=== PATIENT | female | born 1960 | race Caucasian/White ===

== ENCOUNTER 2021-12-13 12:55 | Outpatient (CLI) | payer BC, SELFPAY ==
--- OUTSIDE RECORDS SUMMARY | 2021-11-10 08:53 | XMS_ITS | Continuity of Care Document ---
:1960 Author Allergies, Adverse Reactions, Alerts Allergen Type Severity Reaction Last Verified Status Updated Hydrochlorothiazide Adverse Moderate headache June No Active Reaction 2021 Cefuroxime Allergy Moderate hives June No Active 2021 Lisinopril Adverse Unknown Hair Loss June Yes Active Reaction 2021 Social History Smoking Status Status Start Date End Date Date of Observat ion Never smoked tobacco June 9:16pm (finding) Additional Data Assigned Sex Female Problems Active Problems Medical Problem Onset Date Status Hypothyroidism July 27, 2008 Active arthralgias July 27, 2008 Active Anxiety March 01, 2009 Active Osteopenia March 01, 2009 Active Melanoma March 01, 2009 Resolved Tubal Ligation March 01, 2009 Resolved Vaginal cyst removal March 01, 2009 Resolved osteopenia needs bone densimeter April 19, 2011 Active 11 2012 Hypertension Active Fibromyalgia Active Edema Active Annual physical exam Active Medications Medication Status Dose Units Route Directions Qty Days Start End Ins tructions Date Date Amlodipine Active 5 MG PO Daily 90 Februar Besylate y 2021 1:17pm Calcium Active Unknow PO Daily 100 Carbonate n Dose Hydrochlorot Active 12.5 MG PO Daily 90 Februar hiazide y 2021 1:17pm Levothyroxin Active 137 MCG PO Daily 90 Februar e Sodium y 2021 1:21pm Multivitamin Active 1 TAB PO Daily 100 s (Multivitami n/Minerals) TAB Albuterol Disconti 2 PUFF INH Q4-6H Prn 8.5 November Sulfate nued er 5th, (Proair Hfa) 2011 90 Mcg/Puff 2010 8:55am INH 5:01pm Amlodipine Disconti 5 MG PO Daily 18 June Februa Besylate nued 2021, 1:56pm 2021 1:17pm Amlodipine Disconti 5 MG PO Daily 30 Februa Besylate nued r 2020, 2:25pm 2021 12:55p m Amlodipine Disconti 5 MG PO Daily December Besylate nued , er 2020 6th, 11:41am 2020 2:25pm Amlodipine Disconti 5 MG PO Daily August Besylate nued , 2020 11:22am 11:41a m Amlodipine Disconti 5 MG PO Daily February Besylate nued 2019 7:32pm 11:22a m Amlodipine Disconti 5 MG PO Daily Octobe Besylate nued er r 2019 9:50am 7:37pm Amlodipine Disconti 10 MG PO Daily November Besylate nued , 2019, 9:13am 2019 9:50am Amlodipine Disconti 5 MG PO Daily October Besylate nued 2019 2:19pm 12:02p m Amlodipine Disconti 5 MG PO Daily July Besylate nued , 2019 4:03pm 2:19pm Amlodipine Disconti 5 MG PO Daily July Besylate nued r , 2018 4:15pm 4:03pm Amlodipine Disconti 5 MG PO Daily 30 Besylate nued r 3rd, er 2018 5th, 4:22pm 2018 4:15pm Amlodipine Disconti 5 MG PO Daily July Besylate nued 7th, er 2018 3rd, 10:48am 2018 4:22pm Amlodipine Disconti 5 MG PO Daily Besylate nued r 2nd, er 2017 3rd, 3:08pm 2018 4:12pm Amlodipine Disconti 5 MG PO Daily December Besylate nued 2nd, er 2017 2nd, 11:23am 2017 3:08pm Amlodipine Disconti 5 MG PO Daily February Besylate nued , 2014 1:29pm 11:07a m Amlodipine Disconti 5 MG PO Daily October Besylate nued 2015 9:19am 11:07a m Amlodipine Disconti 5 MG PO Daily 30 Septemb Octobe Besylate nued er , r 2014 11:39am 1:29pm Amoxicillin Disconti 500 MG PO Tid X 10 nued Days r 2015, 11:20am 2016 1:44pm Amoxicillin Disconti 875 MG PO Twice A Day September nued , 2008 3:51pm 2:49pm Amoxicillin/ Disconti 1 TAB PO Twice Daily February brua Clavulanate nued For 10 Days 2020, (Amoxicillin 12:01pm 2021 & Pot 12:55p Clavulanate) m 875 Mg/125 Mg TAB Aspirin Disconti 1 TABLET PO Daily Novembered 2011 8:55am Azithromycin Disconti 250-50 MG PO As Directed July 500 MG ON DAY (Zithromax nued 0 , , 1 THEN 25 0 MG Z-Dieudonne) 250 2019 2019 DAILY X 4 Mg TAB 2:55pm 8:31am MORE DAYS Azithromycin Disconti 1 TAB PO As Directed No vemb 500 MG ON DAY (Zithromax) nued er er 1 THEN 2 50 MG 250 Mg TAB , DAILY DAY S 2010 2010 2-5 4:42pm 2:51pm Biotin W/ Disconti 1 CHW PO Daily July Vitamins C & nued , E (Hair Skin 2018 & Nails ... 8:45am 1250-7.5-7.5 Mcg-Mg-Unt) 1 Chw CHW Calcium/Kristi Disconti 1 EA PO Daily July min D nued 2014 1:52pm Cefuroxime Disconti 1 TABLET PO Twice A Day Jul ch Axetil nued y , (Ceftin) 500 2014 2014 Mg TAB 4:36pm 4:00pm Clonazepam Disconti 1 MG PO Bedtime November nued 2010, 10:46am 2010 4:21pm Conjugated Disconti 1 TAB PO Daily Novemnovember Estrogens-Me nued r , droxypr 2009 2011 (Prempro) 9:51am 8:55am 0.3 Mg/1.5 Mg TAB Conjugated Disconti 1 TAB PO Daily 30 Novem Novemb Estrogens-Me nued r 12th, er droxypr 2010 04, (Prempro) 9:50am 2009 0.3 Mg/1.5 9:51am Mg TAB Conjugated Disconti 1 TAB PO Daily ua Novemb Estrogens-Me nued y 2nd, er droxypr 2010 04, (Prempro) 1:25pm 2009 0.3 Mg/1.5 9:50am Mg TAB Conjugated Disconti 1 TAB PO Daily Februaryua Estrogens-Me nued 2nd, ry droxypr 2008 06, (Prempro) 11:27am 2009 0.3 Mg/1.5 1:25pm Mg TAB Conjugated Disconti 1 TAB PO Daily 16 October Octobe Estrogens-Me nued , r 2nd, droxypr 2008 2008 (Prempro) 12:05pm 11:27a 0.3 Mg/1.5 m Mg TAB Conjugated Disconti 1 TAB PO Daily July Estrogens-Me nued , , droxypr 2008 2008 (Prempro) 10:37am 12:05p 0.45 Mg/1.5 m Mg TAB Cyclobenzapr Disconti 1 TABLET PO Tid Prn July ine Hcl nued 14, , (Flexeril) 2010 Mg TAB 3:53pm 10:25a m Diphenhydram Disconti 25 MG PO Once July ine Hcl nued 9, 9, (Sleep) 2014 2014 (Benadryl) 4:07pm 4:21pm 25 Mg TAB Escitalopram Disconti 5 MG PO Daily October Oxalate nued , , (Lexapro) 5 2016 2017 Mg TAB 9:31am 8:45am Escitalopram Disconti 10 MG PO Daily September ta ke 1/2 tab po each day for seven days. then september increase Oxalate nued r , , to one tab po each day. (Lexapro) 10 2011 2013 Mg TAB 1:51pm 10:59a m Estroven Disconti Daily July nued 2009 2:50pm Fluticasone Disconti 1 SPRAY EACH Twice A Day October Propionate nued NOSTR , , (Fluticasone 2014 2014 Propionate 1:58pm 8:27am (Nasal)) 50 Mcg/1 Fulda INH Hepatitis B Disconti 1 ML IM Once July Vaccine nued , , (Engerix-B 2008 2008 Sdv) 20 9:51am 11:01a Mcg/Ml INJ m Hepatitis B Disconti 1 ML IM Once Vaccine nued er lizzie (Engerix-B , , Sdv) 20 2007 2007 Mcg/Ml INJ 11:40am 11:08a m Hepatitis B Disconti 1 ML IM Once December Vaccine nued , , (Engerix-B 2007 2007 Sdv) 20 9:06am 11:45a Mcg/Ml INJ m Hydrochlorot Disconti 12.5 MG PO Daily hiazide nued r 2020, 2:29pm 2021 1:17pm Hydrochlorot Disconti 12.5 MG PO Daily December hiazide nued 2020, 12:07pm 2021 12:55p m Hydrochlorot Disconti 12.5 MG PO Daily September hiazide nued , 2020 11:07am 12:07p m Hydrochlorot Disconti 12.5 MG PO Daily February hiazide nued , 2019 7:36pm 11:07a m Hydrochlorot Disconti 12.5 MG PO Daily October hiazide nued , 2014 2:02pm 3:06pm Ibuprofen Disconti 600 MG PO Every 6 July nued Hours as 13th, 26, 2014 7:01pm 1:52pm Influenza Disconti 0.5 ML IM Once 1 Decembe Decemb Virus Vac nued r 5th, er Recomb Hem 2018 09, (Flublok 3:41pm 2018 Quadrivalent 4:07pm 2018 0.5 Ml) 1 Inj INJ Influenza Disconti 0.5 ML IM Once 1 Novembe Novemb Virus Vacc nued r 12th, er Triv Types 2010 04, A&B (Fluarix 8:40am 2009) 0.5 8:48am Ml INJ Influenza Disconti 0.5 ML IM Once 1 Novembe Novemb Virus nued r 2nd, er Vaccine 2017 06, (Fluzone 3:12pm 2018 Quadrivalent 3:25pm (3 Yrs And Older)2018-1 9) 1 Inj INJ Levothyroxin Disconti 137 MCG PO Daily May e Sodium nued 2021, 11:21am 2021 1:21pm Levothyroxin Disconti 137 MCG PO Daily Novemberr e Sodium nued 2020, 5:18pm 2021 11:21a m Levothyroxin Disconti 137 MCG PO Daily May e Sodium nued 2020 8:42am 5:18pm Levothyroxin Disconti 137 MCG PO Daily February e Sodium nued , 2019, 9:18am 2020 8:42am Levothyroxin Disconti 125 MCG PO Daily December e Sodium nued 2019, 5:36pm 2020 8:23am Levothyroxin Disconti 112 MCG PO Daily October e Sodium nued , 2019, 2:19pm 2019 7:09pm Levothyroxin Disconti 112 MCG PO Daily October e Sodium nued r 2018 4:15pm 2:19pm Levothyroxin Disconti 112 MCG PO Daily e Sodium nued er er 2018 11:08am 4:15pm Levothyroxin Disconti 112 MCG PO Daily 90 e Sodium nued r , lizzie 2017, 3:08pm 2018 11:08a m Levothyroxin Disconti 112 MCG PO Daily December e Sodium nued , er 2017 2nd, 12:47pm 2017 3:08pm Levothyroxin Disconti 112 MCG PO Daily October e Sodium nued 2017 1:26pm 12:47p m Levothyroxin Disconti 112 MCG PO Daily July e Sodium nued 2017 12:27pm 1:26pm Levothyroxin Disconti 112 MCG PO Daily July e Sodium nued 2017 2:14pm 12:27p m Levothyroxin Disconti 100 MCG PO Daily May e Sodium nued , (Synthroid) 2017 2017 100 Mcg TAB 8:43am 2:15pm Levothyroxin Disconti 100 MCG PO Daily July e Sodium nued 2017 9:15am 2:15pm Levothyroxin Disconti 100 MCG PO Daily Octoberr e Sodium nued , y (Synthroid) 2016, 100 Mcg TAB 9:13am 2017 8:43am Levothyroxin Disconti 112 MCG PO Daily October e Sodium nued , , (Synthroid) 2016 2016 112 Mcg TAB 4:48pm 9:13am Levothyroxin Disconti 100 MCG PO Daily October e Sodium nued , (Synthroid) 2015 2016 100 Mcg TAB 9:19am 4:53pm Levothyroxin Disconti 100 MCG PO Daily September Pt w ill be e Sodium nued , , due for (Synthroid) 2015 2015 medicati on 100 Mcg TAB 8:58am 11:07a follow up in november Levothyroxin Disconti 100 MCG PO Daily November e Sodium nued , (Synthroid) 2014 2015 100 Mcg TAB 8:49am 8:58am Levothyroxin Disconti 1 TAB PO Daily November e Sodium nued , (Synthroid) 2014 8th, 100 Mcg TAB 8:50am 2014 9:09am Levothyroxin Disconti 1 TAB PO Daily September e Sodium nued , , (Synthroid) 2013 2014 100 Mcg TAB 4:20pm 8:50am Levothyroxin Disconti 1 TAB PO Daily September e Sodium nued , , (Synthroid) 2012 2013 100 Mcg TAB 10:13am 4:20pm Levothyroxin Disconti 1 TAB PO Daily September e Sodium nued y , , (Synthroid) 2011 2012 100 Mcg TAB 1:51pm 10:13a m Levothyroxin Disconti 1 TAB PO Daily December e Sodium nued , (Synthroid) 2010 3rd, 100 Mcg TAB 5:10pm 2011 1:51pm Levothyroxin Disconti 1 TAB PO Daily December e Sodium nued r 16, , (Synthroid) 2009 2010 100 Mcg TAB 9:14am 5:10pm Levothyroxin Disconti 1 TAB PO Daily 90 Novembe Novemb e Sodium nued r 12th, er (Synthroid) 2009 16, 75 Mcg TAB 9:50am 2009 9:14am Levothyroxin Disconti 0.5 TAB PO Daily 90 Februar Novemb e Sodium nued y 9th, er 2010 04, 1:52pm 2009 9:50am Levothyroxin Disconti 1 TAB PO Daily Decembe Februa e Sodium nued r , ry (Synthroid) 2008 9th, 75 Mcg TAB 11:53am 2009 1:52pm Levothyroxin Disconti 1 TAB PO Daily Februarymb e Sodium nued 8th, er (Synthroid) 2008 11, 75 Mcg TAB 1:13pm 2008 11:53a m Levothyroxin Disconti 1 TAB PO Daily Februaryobe e Sodium nued 2nd, r (Synthroid) 2008 13, 75 Mcg TAB 11:27am 2008 8:37am Levothyroxin Disconti 1 TAB PO Daily Julyobe e Sodium nued 13th, r 2nd, (Synthroid) 2008 2008 75 Mcg TAB 2:30pm 11:27a m Levothyroxin Disconti 1 TAB PO Daily May e Sodium nued 27, 13th, (Synthroid) 2008 2008 50 Mcg TAB 3:58pm 2:30pm Levothyroxin Disconti 1 TAB PO Daily r e Sodium nued er y (Synthroid) , , 50 Mcg TAB 2007 2008 4:56pm 3:58pm Levothyroxin Disconti 1 TAB PO Daily Janem e Sodium nued er lizzie (Synthroid) , 26, 75 Mcg TAB 2007 2007 4:17pm 4:56pm Levothyroxin Disconti 1 TAB PO Daily Decemberem e Sodium nued , lizzie (Synthroid) 2007 16, 25 Mcg TAB 9:20am 2007 4:17pm Lisinopril Disconti 2.5 MG PO Daily November Februa nued , ry 2015 4th, 8:49am 2015 2:58pm Lisinopril Disconti 2.5 MG PO Daily November nued , lizzie 2014 8th, 2:39pm 2014 9:09am Lisinopril Disconti 2.5 MG PO Daily October nued , , 2014 2014 8:57am 2:39pm Methylpredni Disconti 1 PACK PO Once July TAKE solone nued 14, 9, DIRECTED ON (Medrol 2010 2010 PACKAGE Dose-Dieudonne) 4 3:53pm 10:25a Mg TAB m Multiple Disconti 1 EA PO July Vitamin nued , (Multi-Vitam 2014 in) TAB 1:52pm Multiple Disconti 1 TAB PO Octobe Vitamins W/ nued r Minerals , (Hair Skin 2020 And Nails 11:43a Formu) 1 Tab m TAB Multivitamin Disconti 1 TAB PO Daily 100 Octobe s nued r (Multivitami , n/Minerals) 2020 TAB 11:43a m Oxycodone/Ac Disconti 1-2 TAB PO Every 4 July etaminophen nued Hours as , , (Percocet) 5 needed 2014 2014 Mg/325 Mg 7:01pm 1:52pm TAB Prednisone Disconti 40 MG PO Daily 10 August nued , , 2019 2019 12:48pm 8:31am Tetanus-Diph Disconti 0.5 ML IM Once July theria nued , , Toxoids (Td 2018 2018 (Tenivac) 1 10:30am 10:50a Ml INJ m Tobramycin/D Disconti 1 DROP RIGHT Four Times m examethasone nued EYE Daily lizzie (Tobradex , Oph2010 Suspension) 4:21pm 1 Drop DROP Triamcinolon Disconti 1 BRANDO TOP Twice A Day December emb e Acetonide nued , er (Triamcinolo 2017 09, ne Acetonide 11:23am 2018 (Cream)) 0.1 3:41pm % CRE Triamcinolon Disconti 60 MG IM Once July e Acetonide nued , , (Kenalog) 40 2014 2014 Mg/1 Ml INJ 4:11pm 4:21pm Zoster Disconti 50 MCG IM Once 1 Februar Februa Vaccine nued y 5th, ry Recombinant 2020 5th, Adj 12:47pm 2019 (Shingrix) 1:03pm 50 Mcg/0.5 Ml INJ Zoster Disconti 50 MCG IM Once 1 Decembe Decemb Vaccine nued r , er Recombinant 2018 09, Adj 3:41pm 2018 (Shingrix) 4:07pm 50 Mcg/0.5 Ml INJ Immunizations Immunization Event Date Not Given Dose Bottle Selector Lot Vac cine Reason Number Number Informatio n Statement (VIS) Deta il COVID-19 Pfizer August 13 PFIZER-BIONTECH [id number] 2020 COVID-19 Pfizer September 03, PFIZER-BIONTECH [id number] 2020 Influenza March 20 Glaxosmithkline [id number] 2009 A Influenza March 21 SANOFI [id number] 2017 A Influenza April 21 PROTEIN SC [id number] 2018 A Shingrix April 19 GSK CONSUM [id number] 2018 Shingrix June 21 GLAXOSMITH [id number] 2019 Tetanus/Dipther July 24 SANOFI [id number] 2018 Tdap August 20 (adolescent/pat 2007 lt) Advance Directives Advance Directive Response Recorded Date/Time Does Pt have Health Care No June 29, 2015 2:59pm Directive? Has patient completed a N - Given today June 27 9:16pm Health Care Directive? Insurance Providers Guarantor Deysi Haro Address [address] [address] Contact Info. Home Phone: Payer Policy Id Coverage Id Subscriber's Subscriber Id Effective E xpiration Name Date Date [place] [id number] Raghav Haro [id number] Plan of Treatment Future Tests Future scheduled test information is unavailable Pending Tests Pending diagnostic test information is unavailable Future Visits Future appointment information is unavailable Referrals to Other Providers Reason for Referral Referral Start Provider Provider Contact Pr ovider Address Date Information Entered by Kraina Mtz, 12/30/07. Dread Marrero Work Phone: [facility] Patient scheduled to see Dread Marrero on 01/05/08 at 10:00. RPT ATC [id number] [facility] 05 [phone] Appointment scheduled at [facility] in [place] with Huber Thomason on 09/02/14 at 3:00 pm. Records will be faxed to [phone]. Entered by Karina Mtz, 12/30/07. Dread Marrero Work Phone: [facility] Patient scheduled to see Dread Marrero on 01/05/08 at 10:00. RPT ATC [id number] [id number] Appointment scheduled at [facility] with Huber Thomason on 09/02/14 at 3:00 pm. Records will be faxed to [phone]. Future Procedures Procedure Name Scheduled Date Colonoscopy Screening RAD DEXA - Bone Density RAD DEXA - Bone Density Future Medications Future medication information is unavailable Patient Instructions Patient instructions are unavailable
--- NOTE | 2021-12-13 13:00 | CRLHL7_ITS ---
For Patients: As a result of the Century Cures Act, medical imaging exams and procedure reports are released immediately into your electronic medical record. You may view this report before your referring provider. If you have questions, please contact your health care provider. DXA BONE MINERAL DENSITY STUDY Current height (in): 64. Weight (lb): 140. Menopause age: 41. Ethnicity: White. 1. Have you had a previous hip or vertebral fracture? No. 2. Have you had any fractures during your adult life which did not result from significant trauma (e.g., auto accident)? No. 3. Did either of your parents have a hip fracture? No. 4. Do you smoke? No. 5. Have you ever taken Glucocorticoids? No. 6. Do you have rheumatoid arthritis? No. 7. Do you have secondary osteoporosis? No. 8. Do you drink 3 or more alcoholic drinks per day? No. 9. Are you being treated for osteoporosis? No. 10. Have you ever taken any of the following medications: Actonel, Evista, Fosamax, Miacalcin, Reclast, Boniva, Forteo, HRT (i.e. estrogen/hormone therapy), Protelos, Prolia, Vitamin D, Calcium, other ??? please specify. ANSWER: Yes, vitamin D, calcium. 11. Do you have any of the following medical conditions: Anorexia or bulimia, asthma or emphysema, end stage renal disease, hyperparathyroidism, any seizure disorders, cancer, inflammatory bowel diseases, hysterectomy, other ??? please specify. ANSWER: No. 12. What was your maximum height (inches)? 64. 13. Do you perform weight bearing exercise regularly? Yes. 14. Do you regularly consume dairy products? Yes. 15. Do you drink caffeinated beverages? No. 16. At what age did your period start? 15.5. 17. Are you premenopausal? No. 18. How many full term pregnancies have you had? 4. 19. Have you ever missed your period for more than 6 months in a row (not including or menopause)? No. TECHNIQUE: Bone mineral density study was performed using the [facility]. FINDINGS: The results of the study expressed as bone mineral density (BMD) are as follows: Lumbar spine L1 to L4: BMD: 0.804 g/cm2. T-score: -2.2. Z-score: -0.5. Neck Left: BMD: 0.761 g/cm2. T-score: -0.8. Z-score: 0.7. Right: BMD: 0.663 g/cm2. T-score: -1.7. Z-score: -0.2. Total Left: BMD: 0.822 g/cm2. T-score: -1.0. Z-score: 0.2. Right: BMD: 0.815 g/cm2. T-score: -1.0. Z-score: 0.1. IMPRESSION: Osteopenia. *Comparison exams done prior to 10/2019 were performed on different unit, [facility]. COMPARISON: Compared with scan of 2019, the bone mineral density has increased by 2.9 percent at the spine and decreased by 2.3 percent at the hip. Compared with scan of 2015, the bone mineral density has decreased by 8.4 percent at the spine and decreased by 7.1 percent at the hip. FRAX 10-year Fracture Risk Major Osteoporotic Fracture: 8.9 percent Hip Fracture: 1.0 percent Reported Risk Factors: [place] () Neck BMD = 0.663, BMI = 24.0 Haroon Mas M.D. Diagnostic/Nuclear Medicine Radiologist [email or web address] MARY CARMEN/Dictated by: Haroon Mas MD @ 12/14/2021 11:12:00 AM (Electronically Signed)
== END 2021-12-13 12:56 | disposition home or self-care (01) ==
LOC: RAD 12:59
PROVIDERS: Visit Provider Emergency Medicine
DX: M85.9 Disorder of bone density and structure, unspecified (principal); M85.89 Other specified disorders of bone density and structure, multiple sites
CPT/HCPCS: 77080

== ENCOUNTER 2022-07-18 08:45 | Outpatient (CLI) | payer BC, SELFPAY ==
[2022-07-18 15:04] LABS: Chloride* 105 mmol/L (96-114); Potassium* 4.5 mmol/L (3.6-5.1); Sodium* 141 mmol/L (135-149)
[2022-07-18 15:07] LABS: Carbon Dioxide* 27 mmol/L (20-32); Cholesterol* 226 mg/dL (90-199); Creatinine* 0.8 mg/dL (0.5-1.5); Estimated Glomerular Filt Rate 82 ml/min
[2022-07-18 15:08] LABS: Blood Urea Nitrogen* 17 mg/dL (7-30); Calcium* 10.1 mg/dL (8.4-10.6); Glucose* 110 mg/dL (60-115); HDL Cholesterol* 58 mg/dL (>=50); LDL Cholesterol Calculated 136 mg/dL (<100); Triglycerides* 162 mg/dL (40-149)
[2022-07-18 15:39] LABS: TSH With Reflex to FT4* 0.166 uIU/mL (0.270-4.200)
[2022-07-18 16:54] LABS: Free T4 Free Thyroxine* 1.38 ng/dL (0.70-1.85)
== END 2022-07-18 08:46 | disposition home or self-care (01) ==
PROVIDERS: PCP Emergency Medicine; Visit Provider Emergency Medicine
DX: Z00.00 Encounter for general adult medical examination without abnormal findings (principal); E03.9 Hypothyroidism, unspecified; I10 Essential (primary) hypertension; Z13.6 Encounter for screening for cardiovascular disorders
CPT/HCPCS: 80048; 80061; 84439; 84443

== ENCOUNTER 2022-12-05 09:11 | Outpatient (CLI) | payer BC, SELFPAY | END 2022-12-05 09:12 | disposition home or self-care (01) | LOC: NFLDREF 12-06 07:33 | PROVIDERS: PCP Emergency Medicine; Referring Provider Emergency Medicine; Visit Provider Emergency Medicine | DX: E03.9 Hypothyroidism, unspecified (principal) | CPT/HCPCS: 84439; 84443 ==

== ENCOUNTER 2023-10-02 08:36 | Outpatient (CLI) | payer BC, SELFPAY | END 2023-10-02 08:37 | disposition home or self-care (01) | LOC: NFLDREF 10-03 05:23 | PROVIDERS: PCP Emergency Medicine; Referring Provider Emergency Medicine; Visit Provider Emergency Medicine | DX: E03.9 Hypothyroidism, unspecified (principal); E78.5 Hyperlipidemia, unspecified; I10 Essential (primary) hypertension | CPT/HCPCS: 80053; 80061; 84443 ==

== ENCOUNTER 2024-01-30 08:43 | Outpatient (CLI) | payer BC, SELFPAY | END 2024-01-30 08:44 | disposition home or self-care (01) | LOC: NFLDREF 02-03 08:24 | PROVIDERS: PCP Emergency Medicine; Referring Provider Emergency Medicine; Visit Provider Emergency Medicine | DX: E78.5 Hyperlipidemia, unspecified (principal); I10 Essential (primary) hypertension | CPT/HCPCS: 80048; 80061 ==

== ENCOUNTER 2024-02-05 10:15 | Outpatient (CLI) | payer BC, SELFPAY | END 2024-02-05 10:16 | disposition home or self-care (01) | LOC: LKVREF 10:16 | PROVIDERS: PCP Emergency Medicine; Visit Provider Emergency Medicine | DX: E03.9 Hypothyroidism, unspecified (principal) | CPT/HCPCS: 84439; 84443 ==

== ENCOUNTER 2024-04-09 13:03 | Outpatient (CLI) | payer BC, SELFPAY ==
--- NOTE | 2024-04-09 13:20 | CRLHL7_ITS ---
For Patients: As a result of the Century Cures Act, medical imaging exams and procedure reports are released immediately into your electronic medical record. You may view this report before your referring provider. If you have questions, please contact your health care provider. BILATERAL SCREENING MAMMOGRAM WITH COMPUTER-AIDED DETECTION AND TOMOSYNTHESIS TECHNIQUE: CC and MLO views were obtained. These mammographic images have been obtained using full-field digital technique. These mammographic images were interpreted with the benefit of computer-aided detection. Breast tomosynthesis was used in this interpretation. COMPARISON FILM: 08/17/21, 12/10/19, 11/14/15. FINDINGS: There are scattered areas of fibroglandular density. IMPRESSION: There is no radiographic evidence for malignancy. ASSESSMENT: BI-RADS Category 1: Negative RECOMMENDATION: Routine screening mammogram in 1 year. A lay language report of this examination will be provided to the patient. HUBER ALLRED M.D. Diagnostic Radiologist [email or web address] Transcribed: 2:[address]/Dictated by: Huber Allred MD @ 04/10/2024 9:02:00 AM (Electronically Signed)
== END 2024-04-09 13:04 | disposition home or self-care (01) ==
LOC: MAMMO 13:07
PROVIDERS: PCP Emergency Medicine; Visit Provider Emergency Medicine
DX: Z12.31 Encounter for screening mammogram for malignant neoplasm of breast (principal)
CPT/HCPCS: 77063; 77067